=== PATIENT | male | born 1940 | race Hispanic/Latino ===

== ENCOUNTER 2025-07-20 11:02 | Inpatient (IN) | payer MEDICARE, OTHER ==
[~2025-07-20] VITALS: Ht 185.4 cm; Wt 74.8 kg
[2025-07-20] VITALS (7 sets, daily range): BP systolic 99–134; BP diastolic 54–84; PULSE 72–88; RESP 17–18; TEMP 97.7–98.2; O2SAT 99–100
[~2025-07-20 11:02] MED LIST: LEVAQUIN500 MG PO; METFORMIN HCL500 MG PO; SIMVASTATIN40 MG PO; VASOTEC5 MG PO
[2025-07-20] MEDS ORDERED: SODIUM CHLORIDE 0.9% 1000ML 1,000 ML IV STA (11:17)
[2025-07-20] MEDS ORDERED: TETANUS/DIPHTHERIA TOX ADULT 0.5 ML SYR IM ONE (12:00)
[2025-07-20] MEDS ORDERED: Morphine 2mg Syringe 2 MG/ML SYR IV PRN (12:30)
[2025-07-20] MEDS ORDERED: ONDANSETRON HCL INJ 2MG/ML 2ML 2 MG/ML VIAL IV PRN (12:30)
[2025-07-20] MEDS: DIPHTH,PERTUSS(ACELL),TET VAC 0.5 ML SYRINGE IM ONE (13:04)
[2025-07-20] MEDS: SODIUM CHLORIDE 0.9% 1000ML 1,000 ML IV SCH (13:04)
[2025-07-20] MEDS ORDERED: BRIMONIDINE-TIMO5 ML OP (13:15)
[2025-07-20] MEDS ORDERED: LUMIGAN2.5 M1 OP (13:15)
[2025-07-20] MEDS ORDERED: COMBIGAN EYE DRO5 ML OP (13:15)
[2025-07-20] MEDS ORDERED: TRAMADOL HCL PO (13:15)
[2025-07-20] MEDS ORDERED: TRAMADOL/APAP PO (14:01)
[2025-07-21] VITALS (7 sets, daily range): BP systolic 116–144; BP diastolic 62–80; PULSE 68–78; RESP 17–19; TEMP 97.4–97.7; O2SAT 98–100
[2025-07-21 07:05] LABS: BASOPHILS % 0.6 % (0.0-1.0); EOSINOPHILS % 2.5 % (0.0-6.0); LYMPHOCYTES % 29.6 % (18.0-39.1); MONOCYTES % 9.1 % (4.4-11.3); NEUTROPHILS % 57.6 % (38.7-80.0); RED CELL DISTRIBUTION WIDTH 15.8 % (11.7-14.4)
[2025-07-21 07:46] LABS: EST GLOMERULAR FILTRATION RATE 47.0 ML/MIN (>=60)
[2025-07-21 21:03] LABS: EST GLOMERULAR FILTRATION RATE 44.0 ML/MIN (>=60)
[2025-07-22] VITALS (10 sets, daily range): BP systolic 100–141; BP diastolic 55–67; PULSE 64–73; RESP 17–20; TEMP 97.5–98.9; O2SAT 99–100
[2025-07-22 06:00] LABS: BASOPHILS % 0.7 % (0.0-1.0); EOSINOPHILS % 3.7 % (0.0-6.0); LYMPHOCYTES % 30.4 % (18.0-39.1); MONOCYTES % 9.1 % (4.4-11.3); NEUTROPHILS % 55.7 % (38.7-80.0); RED CELL DISTRIBUTION WIDTH 15.9 % (11.7-14.4)
[2025-07-22] MEDS: ENOXAPARIN SOD INJ 40 MG/0.4 ML SYR SC SCH (09:25)
[2025-07-23] VITALS (8 sets, daily range): BP systolic 100–125; BP diastolic 52–92; PULSE 63–74; RESP 17–19; TEMP 97.6–97.9; O2SAT 85–100
[2025-07-23 06:58] LABS: BASOPHILS % 0.8 % (0.0-1.0); EOSINOPHILS % 5.1 % (0.0-6.0); LYMPHOCYTES % 35.7 % (18.0-39.1); MONOCYTES % 8.4 % (4.4-11.3); NEUTROPHILS % 49.5 % (38.7-80.0); RED CELL DISTRIBUTION WIDTH 15.9 % (11.7-14.4)
[2025-07-23 08:47] LABS: EST GLOMERULAR FILTRATION RATE 50.0 ML/MIN (>=60)
[2025-07-24 03:18] VITALS: BP 140/86; PULSE 69; RESP 18; TEMP 97.8; O2SAT 97
[2025-07-24 06:11] LABS: BASOPHILS % 0.6 % (0.0-1.0); EOSINOPHILS % 4.6 % (0.0-6.0); LYMPHOCYTES % 36.7 % (18.0-39.1); MONOCYTES % 9.6 % (4.4-11.3); NEUTROPHILS % 48.2 % (38.7-80.0); RED CELL DISTRIBUTION WIDTH 15.7 % (11.7-14.4)
[2025-07-24 07:01] LABS: EST GLOMERULAR FILTRATION RATE 52.0 ML/MIN (>=60)
[2025-07-24] MEDS ORDERED: GADOBENATE DIMEGLUMINE 1 ML IV ONE (08:23)
[2025-07-24 09:07] VITALS: BP 135/70; PULSE 86; RESP 19; TEMP 98.2; O2SAT 100
[2025-07-24 12:05] VITALS: BP 135/68; PULSE 83; RESP 19; TEMP 98.4; O2SAT 95
[2025-07-24 16:16] VITALS: BP 160/77; PULSE 89; RESP 20; TEMP 97.7; O2SAT 100
[2025-07-24 20:00] VITALS: BP 91/67; PULSE 69; RESP 16; TEMP 97.9; O2SAT 100
[2025-07-25] VITALS (7 sets, daily range): BP systolic 101–127; BP diastolic 53–67; PULSE 63–86; RESP 17–19; TEMP 97.5–98.6; O2SAT 99–100
[2025-07-26] VITALS (7 sets, daily range): BP systolic 100–144; BP diastolic 47–66; PULSE 66–89; RESP 17–19; TEMP 97.2–98.5; O2SAT 97–100
[2025-07-26] MEDS: MUPIROCIN 2% OINT 22 GM TUBE TOP SCH (09:32)
[2025-07-26] MEDS: CEPHALEXIN 500 MG CAP PO SCH (14:25)
== END 2025-07-26 20:30 | disposition home or self-care (01) | DRG 603 ==
LOC: FSED 11:14 → ERHOLD 12:27 → MED/SURG2 13:38 → OBSVTOIN 07-22 16:28
PROVIDERS: ADMIT Internal Medicine; ATTEND Internal Medicine
DX: L03.115 Cellulitis of right lower limb (principal); N17.9 Acute kidney failure, unspecified; E11.42 Type 2 diabetes mellitus with diabetic polyneuropathy; L03.116 Cellulitis of left lower limb; L97.522 Non-pressure chronic ulcer of other part of left foot with fat layer exposed; L97.512 Non-pressure chronic ulcer of other part of right foot with fat layer exposed; I10 Essential (primary) hypertension; E78.5 Hyperlipidemia, unspecified; Z74.09 Other reduced mobility; E11.621 Type 2 diabetes mellitus with foot ulcer; M19.072 Primary osteoarthritis, left ankle and foot; M19.071 Primary osteoarthritis, right ankle and foot; M21.372 Foot drop, left foot; M21.371 Foot drop, right foot; M20.12 Hallux valgus (acquired), left foot; M20.11 Hallux valgus (acquired), right foot; Z79.84 Long term (current) use of oral hypoglycemic drugs; Z87.891 Personal history of nicotine dependence
CPT/HCPCS: 36415; 80048; 80053; 82948; 85025; 90471; 90714; 93925; 93970; 96372; 99252; 99284; G0378; J1650; J2543; J7030